=== PATIENT | female | born 1950 | race Two or more races ===

== ENCOUNTER 2022-05-01 13:23 | Emergency (ER) | payer OTHER ==
[~2022-05-01] VITALS: Ht 157.5 cm; Wt 82.0 kg
[2022-05-01 14:16] VITALS: BP 186/96
[2022-05-01] MEDS ORDERED: ACETAMINOPHEN 500 MG TAB PO ONE (14:30)
[2022-05-01] MEDS ORDERED: ONDANSETRON ODT 4 MG TAB PO ONE (14:30)
[2022-05-01] MEDS ORDERED: LORA-483 GT (16:21)
[2022-05-01] MEDS ORDERED: BENZ100C19 PO (16:21)
[2022-05-01] MEDS ORDERED: ACET-1158 PO (16:21)
[2022-05-01] MEDS ORDERED: ONDA-144 PO (16:21)
== END 2022-05-01 17:34 | disposition home or self-care (01) ==
LOC: ER 13:29
DX: J06.9 Acute upper respiratory infection, unspecified (principal); B97.89 Other viral agents as the cause of diseases classified elsewhere; R07.89 Other chest pain; I11.0 Hypertensive heart disease with heart failure; I50.9 Heart failure, unspecified; E11.9 Type 2 diabetes mellitus without complications; Z20.822 Contact with and (suspected) exposure to COVID-19
CPT/HCPCS: 36415; 71046; 87426; 87804; 99284; Q0162

== ENCOUNTER 2022-05-10 13:13 | Inpatient (IN) | payer OTHER, MEDICAID ==
[~2022-05-10] VITALS: Ht 157.5 cm; Wt 86.0 kg
[~2022-05-10 13:13] MED LIST: ACET-1158 PO; BENZ100C19 PO; LORA-483 GT; ONDA-144 PO
[2022-05-10] MEDS ORDERED: SODIUM CHLORIDE 0.9% 500 ML IVB ONE (13:45)
[2022-05-10] MEDS ORDERED: MORPHINE SULFATE 4 MG/ML SYR/VIAL IV ONE (13:45)
[2022-05-10 14:33] LABS: Basophils # (auto) 0.1 10 ^3/uL (0-0.2); Eosinophils # (auto) 0.1 10 ^3/uL (0-0.8); Eosinophils % (auto) 0.6 % (0.0-7.0); Hematocrit 42.5 % (36.0-46.0); Hemoglobin 14.3 g/dL (12.2-16.2); Lymphocytes # (auto) 1.1 10 ^3/uL (0.4-5.4); Lymphocytes % (auto) 9.5 % (10.0-50.0); Mean Corpuscular Hemoglobin 28.3 pg (28.0-32.0); Mean Corpuscular Hgb Conc. 33.6 g/dL (32.0-36.0); Mean Corpuscular Volume 84.3 fL (80.0-100.0); Monocytes # (auto) 0.2 10 ^3/uL (0-1.3); Monocytes % (auto) 1.9 % (0.0-12.0); Neutrophils # (auto) 10.3 10 ^3/uL (1.6-8.6); Red Blood Cells 5.04 10^6/uL (4.0-5.20); Red Cell Distribution Width 13.8 % (11.8-14.3); White Blood Cell 11.8 10^3/uL (4.4-10.8)
[2022-05-10 14:42] LABS: Albumin 3.3 g/dL (3.4-5.0); BUN/Creatinine Ratio 24.4; Bilirubin, Total 0.4 mg/dL (0.2-1.0); Calcium 8.9 mg/dL (8.5-10.1); Potassium 4.4 mmol/L (3.5-5.1); Total Protein 6.6 g/dL (6.4-8.2)
[2022-05-10] MEDS: ONDANSETRON HCL 4 MG/2 ML VIAL IV ONE ×2 (15:35→16:51)
[2022-05-10] MEDS ORDERED: SODIUM CHLORIDE 0.9% 1,000 ML IV ONE (17:00)
[2022-05-10] MEDS ORDERED: NITROGLYCERIN 0.4 MG SL TAB SL PRN (17:00)
[2022-05-10] MEDS ORDERED: MORPHINE SULFATE INJ 2 MG/ml SYRG IV PRN ×2 (17:00)
[2022-05-10] MEDS: PIPERACILLIN-TAZOB 3.375GM 100 ML IV SCH ×2 (17:36→18:00)
[2022-05-10 17:49] LABS: Urine Bacteria FEW /hpf (None Seen); Urine Blood Negative /uL (Negative); Urine Hyaline Cast FEW /lpf (0 - 2); Urine Mucus FEW (None Seen); Urine Specific Gravity 1.025 (1.001-1.035); Urine WBC <1 /hpf (0 - 5)
[2022-05-10] MEDS ORDERED: ONDANSETRON HCL 4 MG/2 ML VIAL IV ONE (18:00)
[2022-05-10] MEDS ORDERED: hydrALAZINE HCL 20 MG/ML VL IV PRN (18:45)
[2022-05-10 18:53] LABS: INR 1.05 (0.9-1.15)
[2022-05-11] MEDS: PIPERACILLIN-TAZOB 3.375GM 100 ML IV SCH ×5 (00:19→22:57)
[2022-05-11 05:59] LABS: Basophils # (auto) 0.1 10 ^3/uL (0-0.2); Basophils % (auto) 0.5 % (0.0-2.0); Eosinophils # (auto) 0.1 10 ^3/uL (0-0.8); Eosinophils % (auto) 1.1 % (0.0-7.0); Hematocrit 40.3 % (36.0-46.0); Hemoglobin 13.8 g/dL (12.2-16.2); Lymphocytes # (auto) 1.4 10 ^3/uL (0.4-5.4); Lymphocytes % (auto) 12.7 % (10.0-50.0); Mean Corpuscular Hemoglobin 29.1 pg (28.0-32.0); Mean Corpuscular Hgb Conc. 34.1 g/dL (32.0-36.0); Mean Corpuscular Volume 85.2 fL (80.0-100.0); Monocytes # (auto) 0.5 10 ^3/uL (0-1.3); Monocytes % (auto) 4.2 % (0.0-12.0); Neutrophils # (auto) 8.8 10 ^3/uL (1.6-8.6); Neutrophils % (auto) 81.5 % (37.0-80.0); Nucleated Red Blood Cells % 0.1 %; Red Blood Cells 4.73 10^6/uL (4.0-5.20); White Blood Cell 10.8 10^3/uL (4.4-10.8)
[2022-05-11 06:35] LABS: Albumin 3.2 g/dL (3.4-5.0); BUN/Creatinine Ratio 25.5; Bilirubin, Total 0.6 mg/dL (0.2-1.0); Calcium 8.8 mg/dL (8.5-10.1); Potassium 3.6 mmol/L (3.5-5.1); Total Protein 6.3 g/dL (6.4-8.2)
[2022-05-11 09:00] VITALS: BP 139/85
[2022-05-11 10:51] LABS: Urine Bacteria FEW /hpf (None Seen); Urine Blood Negative /uL (Negative); Urine Specific Gravity 1.016 (1.001-1.035); Urine WBC 2 /hpf (0 - 5)
[2022-05-11] MEDS ORDERED: METF-929 PO (14:43)
[2022-05-11 16:00] VITALS: BP 131/68
[2022-05-11] MEDS ORDERED: DEXTROSE (50%) 50ML SYRG IV PRN (18:00)
[2022-05-11 20:00] VITALS: BP 139/85
[2022-05-11] MEDS: ACCU-CHEK COMFORT CURVE STRIP VI SCH (21:40)
[2022-05-11] MEDS: InsuLIN REG 1unit/0.01ml Soln (100units/ml) SC SCH (21:40)
[2022-05-12 04:34] VITALS: BP 158/85
[2022-05-12 05:31] LABS: Basophils # (auto) 0.1 10 ^3/uL (0-0.2); Basophils % (auto) 0.9 % (0.0-2.0); Eosinophils # (auto) 0.2 10 ^3/uL (0-0.8); Eosinophils % (auto) 2.5 % (0.0-7.0); Hematocrit 39.6 % (36.0-46.0); Hemoglobin 13.8 g/dL (12.2-16.2); Lymphocytes # (auto) 1.9 10 ^3/uL (0.4-5.4); Lymphocytes % (auto) 22.4 % (10.0-50.0); Mean Corpuscular Hemoglobin 29.5 pg (28.0-32.0); Mean Corpuscular Hgb Conc. 34.8 g/dL (32.0-36.0); Mean Corpuscular Volume 84.8 fL (80.0-100.0); Monocytes # (auto) 0.4 10 ^3/uL (0-1.3); Neutrophils % (auto) 69.2 % (37.0-80.0); Nucleated Red Blood Cells % 0.3 %; Red Blood Cells 4.67 10^6/uL (4.0-5.20); Red Cell Distribution Width 13.7 % (11.8-14.3); White Blood Cell 8.6 10^3/uL (4.4-10.8)
[2022-05-12 05:48] LABS: Calcium 8.9 mg/dL (8.5-10.1); Potassium 3.6 mmol/L (3.5-5.1)
[2022-05-12 05:53] LABS: BUN/Creatinine Ratio 23.9; Bilirubin, Total 1.2 mg/dL (0.2-1.0); Total Protein 5.7 g/dL (6.4-8.2)
[2022-05-12] MEDS: ACCU-CHEK COMFORT CURVE STRIP VI SCH ×4 (06:02→21:31)
[2022-05-12] MEDS: PIPERACILLIN-TAZOB 3.375GM 100 ML IV SCH ×3 (06:02→18:23)
[2022-05-12] MEDS: InsuLIN REG 1unit/0.01ml Soln (100units/ml) SC SCH ×4 (06:02→21:33)
[2022-05-12 09:00] VITALS: BP 160/71
[2022-05-12 13:00] VITALS: BP 160/85
[2022-05-12] MEDS ORDERED: LIDOCAINE W/ EPINEPHRINE 1% 20ML VIAL ONE (13:22)
[2022-05-12] MEDS ORDERED: BUPIVACAINE 0.5% P/F INJ 10 ML VIAL ONE (13:23)
[2022-05-12] MEDS ORDERED: ROCURONIUM 10MG/ML 10ML VIAL IV ONE (13:47)
[2022-05-12] MEDS ORDERED: fentaNYL CITRATE 100 MCG/2 ML VL ONE (13:47)
[2022-05-12] MEDS ORDERED: MIDAZOLAM HCL 2MG/2ML 2ml VIAL (1mg/ml) ONE (13:47)
[2022-05-12] MEDS ORDERED: ONDANSETRON HCL 4 MG/2 ML VIAL ONE ×2 (13:49→16:08)
[2022-05-12] MEDS ORDERED: LIDOCAINE 2% (LOCAL ANESTH.) PF 5ml SDV ONE (13:49)
[2022-05-12] MEDS ORDERED: HYDROmorphone HCL 2 MG/ML VL/or syr IV PRN ×2 (14:30)
[2022-05-12] MEDS ORDERED: ONDANSETRON HCL 4 MG/2 ML VIAL IV PRN ×2 (14:30→14:45)
[2022-05-12] MEDS ORDERED: D5W/SOD CHL 0.45%/KCL 20MEQ 1,000 ML IV ONE (14:45)
[2022-05-12] MEDS ORDERED: ceFAZolin IM 1GM/2.5ML STERILE WATER IM ONE (14:45)
[2022-05-12] MEDS ORDERED: PROPOFOL 10 MG/ML 20 ML IV ONE (15:05)
[2022-05-12] MEDS ORDERED: NEOSTIGMINE 1 MG/ML INJ (10mg/10ML VIAL) ONE (15:05)
[2022-05-12] MEDS ORDERED: GLYCOPYRROLATE 0.2 MG/ML 1ML VIAL ONE (15:05)
[2022-05-12] MEDS ORDERED: HYDROmorphone HCL 2 MG/ML VL/or syr IV ONE (15:44)
[2022-05-12] MEDS ORDERED: ONDANSETRON HCL 4 MG/2 ML VIAL IV ONE (16:16)
[2022-05-12 17:00] VITALS: BP 150/79
[2022-05-12] MEDS: HYDROmorphone HCL 2 MG/ML VL/or syr IV PRN (21:25)
[2022-05-12 22:00] VITALS: BP 150/81
[2022-05-13] MEDS: PIPERACILLIN-TAZOB 3.375GM 100 ML IV SCH ×4 (00:25→19:57)
[2022-05-13 05:00] VITALS: BP 158/76
[2022-05-13 05:43] LABS: Basophils # (auto) 0.1 10 ^3/uL (0-0.2); Basophils % (auto) 0.4 % (0.0-2.0); Eosinophils # (auto) 0 10 ^3/uL (0-0.8); Eosinophils % (auto) 0.1 % (0.0-7.0); Hemoglobin 13.7 g/dL (12.2-16.2); Lymphocytes # (auto) 1.4 10 ^3/uL (0.4-5.4); Lymphocytes % (auto) 9.4 % (10.0-50.0); Mean Corpuscular Hemoglobin 28.7 pg (28.0-32.0); Mean Corpuscular Hgb Conc. 33.5 g/dL (32.0-36.0); Mean Corpuscular Volume 85.7 fL (80.0-100.0); Monocytes # (auto) 0.8 10 ^3/uL (0-1.3); Monocytes % (auto) 5.6 % (0.0-12.0); Neutrophils # (auto) 12.5 10 ^3/uL (1.6-8.6); Neutrophils % (auto) 84.5 % (37.0-80.0); Nucleated Red Blood Cells % 0.2 %; Red Blood Cells 4.78 10^6/uL (4.0-5.20); Red Cell Distribution Width 13.5 % (11.8-14.3); White Blood Cell 14.8 10^3/uL (4.4-10.8)
[2022-05-13 05:58] LABS: Albumin 3.1 g/dL (3.4-5.0); Potassium 3.8 mmol/L (3.5-5.1)
[2022-05-13 06:00] LABS: BUN/Creatinine Ratio 20.9
[2022-05-13 06:03] LABS: Bilirubin, Total 0.9 mg/dL (0.2-1.0)
[2022-05-13] MEDS: HYDROmorphone HCL 2 MG/ML VL/or syr IV PRN (06:19)
[2022-05-13] MEDS: ACCU-CHEK COMFORT CURVE STRIP VI SCH ×4 (06:24→22:00)
[2022-05-13] MEDS: InsuLIN REG 1unit/0.01ml Soln (100units/ml) SC SCH ×4 (06:24→22:00)
[2022-05-13 08:05] VITALS: BP 157/93
[2022-05-13] MEDS: PANTOPRAZOLE 40 MG/10 ML VIAL INJ IV SCH (10:09)
[2022-05-13 12:10] VITALS: BP 148/79
[2022-05-13] MEDS ORDERED: ACETAMINOPHEN/CODEINE#3 (300/30mg) TAB PO PRN (14:30)
[2022-05-13 16:05] VITALS: BP 153/67
[2022-05-13 23:14] VITALS: BP 154/73
[2022-05-14] MEDS: PIPERACILLIN-TAZOB 3.375GM 100 ML IV SCH ×4 (00:45→18:00)
[2022-05-14 04:44] VITALS: BP 148/77
[2022-05-14] MEDS: ACCU-CHEK COMFORT CURVE STRIP VI SCH ×4 (06:00→21:28)
[2022-05-14] MEDS: InsuLIN REG 1unit/0.01ml Soln (100units/ml) SC SCH ×4 (06:00→21:38)
[2022-05-14 06:19] LABS: Basophils # (auto) 0.1 10 ^3/uL (0-0.2); Basophils % (auto) 0.5 % (0.0-2.0); Eosinophils # (auto) 0.1 10 ^3/uL (0-0.8); Eosinophils % (auto) 1.4 % (0.0-7.0); Hematocrit 41.4 % (36.0-46.0); Hemoglobin 13.9 g/dL (12.2-16.2); Lymphocytes # (auto) 1.5 10 ^3/uL (0.4-5.4); Lymphocytes % (auto) 13.9 % (10.0-50.0); Mean Corpuscular Hemoglobin 29.3 pg (28.0-32.0); Mean Corpuscular Hgb Conc. 33.5 g/dL (32.0-36.0); Mean Corpuscular Volume 87.4 fL (80.0-100.0); Monocytes # (auto) 0.6 10 ^3/uL (0-1.3); Monocytes % (auto) 5.5 % (0.0-12.0); Neutrophils # (auto) 8.6 10 ^3/uL (1.6-8.6); Neutrophils % (auto) 78.7 % (37.0-80.0); Red Blood Cells 4.74 10^6/uL (4.0-5.20); Red Cell Distribution Width 13.8 % (11.8-14.3); White Blood Cell 10.9 10^3/uL (4.4-10.8)
[2022-05-14 06:32] LABS: Albumin 2.8 g/dL (3.4-5.0); BUN/Creatinine Ratio 23.4; Calcium 8.9 mg/dL (8.5-10.1); Potassium 3.8 mmol/L (3.5-5.1)
[2022-05-14 06:35] LABS: Bilirubin, Total 1.1 mg/dL (0.2-1.0); Total Protein 6.1 g/dL (6.4-8.2)
[2022-05-14 09:00] VITALS: BP 144/64
[2022-05-14] MEDS: PANTOPRAZOLE 40 MG/10 ML VIAL INJ IV SCH (10:19)
[2022-05-14] MEDS ORDERED: ACETAMINOPHEN 500 MG TAB PO PRN (11:45)
[2022-05-14 12:35] VITALS: BP 150/79
[2022-05-14 16:04] VITALS: BP 120/60
[2022-05-14 22:00] VITALS: BP 120/62
[2022-05-15] MEDS: PIPERACILLIN-TAZOB 3.375GM 100 ML IV SCH ×3 (00:29→12:00)
[2022-05-15 05:00] VITALS: BP 151/76
[2022-05-15] MEDS: ACCU-CHEK COMFORT CURVE STRIP VI SCH ×2 (05:20→11:18)
[2022-05-15] MEDS: InsuLIN REG 1unit/0.01ml Soln (100units/ml) SC SCH ×2 (05:21→11:18)
[2022-05-15 08:00] VITALS: BP 96/57
[2022-05-15 09:00] VITALS: BP 157/76
[2022-05-15] MEDS: PANTOPRAZOLE 40 MG/10 ML VIAL INJ IV SCH (11:13)
[2022-05-15 12:21] VITALS: BP_SYST 148; BP_SYST 157; BP_DIAS 76; BP_DIAS 84
[2022-05-15 12:30] VITALS: BP 148/84
== END 2022-05-15 12:39 | disposition home or self-care (01) | DRG 419 ==
LOC: EDBD 13:13 → ER 13:13 → OVERFLOW 17:14 → EAST 05-11 13:49
PROVIDERS: ADMIT Internal Medicine; ATTEND Internal Medicine
PROC: 0FT44ZZ Resection of Gallbladder, Percutaneous Endoscopic Approach (ICD-10-PCS; principal; 2022-05-12 13:42)
DX: K80.00 Calculus of gallbladder with acute cholecystitis without obstruction (principal); E11.9 Type 2 diabetes mellitus without complications; K76.0 Fatty (change of) liver, not elsewhere classified; I50.9 Heart failure, unspecified; I11.0 Hypertensive heart disease with heart failure; E66.01 Morbid (severe) obesity due to excess calories; Z20.822 Contact with and (suspected) exposure to COVID-19; E78.5 Hyperlipidemia, unspecified; Z83.3 Family history of diabetes mellitus; Z82.49 Family history of ischemic heart disease and other diseases of the circulatory system; Z68.34 Body mass index [BMI] 34.0-34.9, adult
CPT/HCPCS: 36415; 71045; 76705; 80053; 81001; 82962; 85025; 85610; 86850; 86900; 86901; 87426; 93005; 93306; 96374; C9113; G0378; J0690; J1815; J2001; J2250; J2405; J2543; J2704; J3490